=== PATIENT | female | born 1960 | race Two or more races ===

== ENCOUNTER 2020-12-03 08:55 | Day surgery (SDC) | payer OTHER | END 2020-12-03 12:50 | disposition home or self-care (01) | LOC: AMB-ENDOS 08:55 | PROVIDERS: ATTEND Surgery | DX: K57.32 Diverticulitis of large intestine without perforation or abscess without bleeding (principal); Z20.822 Contact with and (suspected) exposure to COVID-19 ==

== ENCOUNTER 2021-01-14 12:30 | Inpatient (IN) | payer OTHER ==
[~2021-01-14] VITALS: Ht 157.5 cm; Wt 53.5 kg
[2021-01-14] MEDS ORDERED: SYNTHROID100 MCG PO (15:39)
[2021-01-23] MEDS ORDERED: HYOSCYAMINE0.125 M1 SL (12:54)
[2021-01-23] MEDS ORDERED: OXYC1TAB9 PO (12:55)
== END 2021-01-23 13:57 | disposition home or self-care (01) | DRG 331 ==
LOC: SURH 01-20 07:00 → O/R 01-20 09:00 → SURH 01-20 12:30 → SURG 01-20 15:28 → SURH 01-20 18:58
PROVIDERS: ADMIT Surgery; ATTEND Surgery
PROC: 0DTP4ZZ Resection of Rectum, Percutaneous Endoscopic Approach (ICD-10-PCS; 2021-01-20)
PROC: 0DBN4ZZ Excision of Sigmoid Colon, Percutaneous Endoscopic Approach (ICD-10-PCS; principal; 2021-01-20 07:00)
DX: K57.32 Diverticulitis of large intestine without perforation or abscess without bleeding (principal); K57.30 Diverticulosis of large intestine without perforation or abscess without bleeding; N73.6 Female pelvic peritoneal adhesions (postinfective); E03.9 Hypothyroidism, unspecified; Z53.1 Procedure and treatment not carried out because of patient's decision for reasons of belief and group pressure